=== PATIENT | female | born 1965 | race Two or more races ===

== ENCOUNTER 2019-01-13 16:40 | Inpatient (IN) | payer OTHER ==
[~2019-01-13] VITALS: Ht 162.6 cm; Wt 80.7 kg
[~2019-01-13 16:40] MED LIST: CALTRATE 600+D1 EACH PO; CARAFATE1 GM PO; PROTONIX40 MG PO; ZANTAC300 MG PO
[2019-01-20] MEDS ORDERED: OXYC1TAB9 PO (08:39)
[2019-01-20] MEDS ORDERED: INTESTINEX680 M1 PO (08:40)
== END 2019-01-20 14:51 | disposition home or self-care (01) | DRG 331 ==
LOC: O/R 01-19 07:45 → SURH 01-19 07:45 → SURG 01-19 12:47 → SURH 01-19 20:26
PROVIDERS: ADMIT Surgery
PROC: 0DNH4ZZ Release Cecum, Percutaneous Endoscopic Approach (ICD-10-PCS; 2019-01-19)
PROC: 0DBH4ZZ Excision of Cecum, Percutaneous Endoscopic Approach (ICD-10-PCS; principal; 2019-01-19 15:45)
DX: D12.0 Benign neoplasm of cecum (principal); K66.0 Peritoneal adhesions (postprocedural) (postinfection); D17.5 Benign lipomatous neoplasm of intra-abdominal organs; K29.60 Other gastritis without bleeding; K59.04 Chronic idiopathic constipation